=== PATIENT | female | born 1935 | race Caucasian/White ===

== ENCOUNTER → 2016-05-16 | Outpatient (CLI) | payer OTHER ==
[~2016-05-16] MED LIST: ATROVENTNS0.03% NS; NASONEX SPRAY17 GM NS; NEXIUM 40MG40 MG PO; PHENERGAN W/CO120 M1 PO; PROMETHAZINE V473 M2 PO; SINGULAIR 110 MG/TAB PO; XOPENEX 1.1.25 MG/3 IH; ZYRTEC 10MG10 MG PO
[2016-05-17 10:20] LABS: PH 5 (5-8); SQUAMOUS EPITHELIAL 0-2 /hpf; URINE APPEARANCE Turbid; URINE BACTERIA Moderate /hpf; URINE BILIRUBIN Negative (NEGATIVE); URINE BLOOD 2+ (NEGATIVE); URINE COLOR Yellow; URINE GLUCOSE Negative (NEGATIVE); URINE KETONE Negative (NEGATIVE); URINE RBC >50 /hpf; URINE URIC ACID CRYSTAL Present /hpf; URINE UROBILINOGEN Negative (NEGATIVE); URINE WBC 20-50 /hpf
== END ==
LOC: ZCOL.LAB 14:00
PROVIDERS: Medical Genetics Clinical Genetics (M.D.)
DX: N39.0 Urinary tract infection, site not specified (principal)

== ENCOUNTER → 2016-07-29 | Outpatient (REF) | LOC: ZLAB.WCH 14:54 | DX: Z01.89 Encounter for other specified special examinations (principal) ==

== ENCOUNTER → 2016-10-23 | Outpatient (CLI) | payer OTHER | LOC: ZCOL.LAB 15:10 | DX: Z43.5 Encounter for attention to cystostomy (principal); N39.0 Urinary tract infection, site not specified ==

== ENCOUNTER → 2017-03-07 | Outpatient (REF) | LOC: ZLAB.WCH 18:06 | DX: Z01.89 Encounter for other specified special examinations (principal) ==